=== PATIENT | female | born 1960 | race Caucasian/White ===

== ENCOUNTER → 2023-12-25 10:06 | Outpatient (REF) | payer OTHER, SELFPAY | LOC: RAD 10:06 | PROVIDERS: ATTENDING PHYSICIAN Physician Assistant | DX: Z13.820 Encounter for screening for osteoporosis (principal); M54.2 Cervicalgia | CPT/HCPCS: 72050; 77080 ==

== ENCOUNTER → 2024-01-07 07:54 | Outpatient (REF) | payer OTHER, SELFPAY | LOC: RCS 07:54 | PROVIDERS: ATTENDING PHYSICIAN Physician Assistant | DX: R07.9 Chest pain, unspecified (principal); R53.83 Other fatigue | CPT/HCPCS: 93017 ==

== ENCOUNTER → 2024-01-14 11:34 | Outpatient (REF) | payer OTHER, SELFPAY | LOC: RAD 11:34 | PROVIDERS: ATTENDING PHYSICIAN Physical Medicine & Rehabilitation; FAMILY PHYSICIAN Physician Assistant | DX: M54.6 Pain in thoracic spine (principal) | CPT/HCPCS: 72072 ==

== ENCOUNTER 2024-01-25 11:52 | Outpatient (RCR) | payer OTHER, SELFPAY | END 2024-01-25 23:59 | disposition home or self-care (01) | LOC: RPT 11:52 | PROVIDERS: ATTENDING PHYSICIAN Physical Medicine & Rehabilitation; FAMILY PHYSICIAN Physician Assistant | DX: M50.30 Other cervical disc degeneration, unspecified cervical region (principal); M47.812 Spondylosis without myelopathy or radiculopathy, cervical region; Z73.6 Limitation of activities due to disability | CPT/HCPCS: 97112; 97162 ==

== ENCOUNTER → 2024-02-09 13:12 | Outpatient (REF) | payer OTHER, SELFPAY | LOC: PAVMRI 13:12 | PROVIDERS: ATTENDING PHYSICIAN Physical Medicine & Rehabilitation; FAMILY PHYSICIAN Physician Assistant; REFERRING PHYSICIAN Internal Medicine Rheumatology | DX: M54.12 Radiculopathy, cervical region (principal) | CPT/HCPCS: 72141 ==

== ENCOUNTER → 2024-04-26 11:41 | Outpatient (REF) | payer OTHER, SELFPAY | LOC: RAD 11:41 | PROVIDERS: ATTENDING PHYSICIAN Internal Medicine Rheumatology; FAMILY PHYSICIAN Physician Assistant | DX: M79.641 Pain in right hand (principal); M79.671 Pain in right foot; M15.9 Polyosteoarthritis, unspecified; M81.0 Age-related osteoporosis without current pathological fracture | CPT/HCPCS: 73110; 73130; 73630 ==

== ENCOUNTER → 2024-06-06 06:23 | Day surgery (SDC) | payer OTHER, SELFPAY | LOC: GI 06:23 | PROVIDERS: ATTENDING PHYSICIAN Internal Medicine; FAMILY PHYSICIAN Physician Assistant | DX: R19.7 Diarrhea, unspecified (principal); R10.13 Epigastric pain; K29.50 Unspecified chronic gastritis without bleeding | CPT/HCPCS: 43239; 88305; 88342 ==

== ENCOUNTER → 2024-08-16 08:05 | Outpatient (REF) | payer OTHER, SELFPAY | LOC: DHCBC/DCA 08:05 | PROVIDERS: ATTENDING PHYSICIAN Internal Medicine Cardiovascular Disease; FAMILY PHYSICIAN Physician Assistant | DX: R07.89 Other chest pain (principal) | CPT/HCPCS: 78452; 93017; A9500 ==

== ENCOUNTER → 2024-09-01 15:41 | Outpatient (REF) | payer OTHER, SELFPAY | LOC: WDC 15:41 | PROVIDERS: ATTENDING PHYSICIAN Obstetrics & Gynecology Gynecology; FAMILY PHYSICIAN Physician Assistant | DX: Z12.31 Encounter for screening mammogram for malignant neoplasm of breast (principal) | CPT/HCPCS: 77063; 77067 ==

== ENCOUNTER → 2024-10-27 08:34 | Outpatient (REF) | payer OTHER, SELFPAY | LOC: RAD 08:34 | PROVIDERS: ATTENDING PHYSICIAN Obstetrics & Gynecology Gynecology; FAMILY PHYSICIAN Physician Assistant | DX: N95.0 Postmenopausal bleeding (principal) | CPT/HCPCS: 76830; 76856 ==

== ENCOUNTER → 2025-05-22 13:07 | Outpatient (REF) | payer MEDICARE, SELFPAY | LOC: HWRAD 13:07 | PROVIDERS: ATTENDING PHYSICIAN Obstetrics & Gynecology Gynecology; FAMILY PHYSICIAN Physician Assistant; OTHER PHYSICIAN Internal Medicine; REFERRING PHYSICIAN Internal Medicine Rheumatology | DX: N83.209 Unspecified ovarian cyst, unspecified side (principal) | CPT/HCPCS: 76830; 76856 ==

== ENCOUNTER 2025-05-22 16:53 | Emergency (ER) | payer MEDICARE, SELFPAY ==
[2025-05-22 16:56] VITALS: BP 115/57
[2025-05-22 17:17] LABS: Hematocrit 34.2 % (37.0-47.0); Hemoglobin 11.5 g/dL (12.0-16.0); Mean Corp Hgb Conc. 33.6 g/dL (33.0-37.0); Mean Corpuscular Volume 89.5 fL (81.0-99.0); Nucleated Red Blood Cells % 0 %; Platelet Count 231 10^3/uL (130-400); Red Cell Dist. Width 13.6 % (11.5-14.5)
[2025-05-22 17:37] LABS: ALT (SGPT) 17 U/L (0-35); AST (SGOT) 20 U/L (14-36); Albumin 4.2 g/dl (3.5-5.0); Alkaline Phosphatase 56 U/L (38-126); Blood Urea Nitrogen 19 mg/dl (7-17); Calcium 9.0 mg/dl (8.4-10.2); Carbon Dioxide 29 mmol/L (22-30); Chloride 108 mmol/L (98-107); Glucose 97 mg/dl (70-99); Potassium 4.0 mmol/L (3.5-5.1); Sodium 140 mmol/L (135-145); Total Protein 7.1 g/dl (6.3-8.2); Uric Acid 3.5 mg/dl (2.5-6.2); eGFR > 60.00
--- NOTE | 2025-05-22 20:18 | ED.GENMED ---
History of Present Illness
General
Chief Complaint: Swelling
Source: patient
Exam Limitations: none
Time Seen by Provider: 05/22/25 19:56
Nursing documentation reviewed up to this point in time: agreed with
History of Present Illness
History of Present Illness:
Patient is a very pleasant 65-year-old female history of osteoarthritis on turmeric presents with swelling of her left knee and left Who was admitted to hospital in [facility] with pneumonia treated with 2 antibiotics had some pain in her
wrist, which improved, then developed some rectal bleeding with a negative C. difficile, and then the past few days had some left knee pain and left calf pain PCP sent in to rule out DVT, does have a prescription for meloxicam which she has not
started yet she did want to start steroids as concern for osteoporosis no chest pain or shortness of breath no fever she is recovered from the pneumonia she was doing some aerobic exercises on the beach recently
Past History
Past History
ED Past Medical History: Other (Osteoarthritis)
ED Past Surgical History:
Social History
Tobacco: Non-smoker
Alcohol: None
Drug: None
Personal:
Living: with family
Employment: Employed
Review of Systems
Review of Systems
All Other Systems: Not applicable
Constitutional: Denies fever or fatigue
EENT: Reports no symptoms
Respiratory: Denies trouble breathing
Cardiac: Denies chest pain
Musculoskeletal: Reports joint pain and muscle stiffness
Phy Exam
Physical Exam
Physical Exam:
Physical Exam
General: no apparent distress, not acutely ill
Neck: No jaundice
Heart: s1/s2 regular rate and rhythm, no murmur. equal radial pulses.
Lungs: no acute respiratory distress. clear bilaterally
Neuro: alert and oriented. no focal neurological deficits
Skin: no rash
Psychiatric: well kept. interactive and cooperative
Extremities: Mild swelling of the left glute and left calf no cellulitic changes no cords
Scores
Heart Failure Risk
Heart Failure Risk Score: Not Applicable
Course
Orders/Labs/Results
Orders:
Orders
05/22/25 17:00
US Legs, Left [US Periph Venous LOWER Ext LT] Urgent
Comment:
Reason For Exam: swelling
05/22/25 17:06
C-Reactive Protein Urgent
Complete Blood Count/With Diff Urgent
Comprehensive Metabolic Panel Urgent
Erythrocyte Sed Rate Urgent
Uric Acid Urgent
05/22/25 20:18
Jovan Wrap Left-Treatment ONCE
Abnormal Lab Results
05/22/25
17:06
RBC 3.82 L 10^6/uL
(4.20-5.40)
Hgb 11.5 L g/dL
(12.0-16.0)
Hct 34.2 L %
(37.0-47.0)
ESR 28 H mm/hour
(0-20)
Chloride 108 H mmol/L
(98-107)
BUN 19 H mg/dl
(7-17)
05/22/25 17:06
05/22/25 17:06
Vital Signs
Initial and Last Documented VS:
Initial Vital Signs
Temp Pulse Resp BP Pulse Ox
98.0 F 74 20 115/57 97
05/22/25 16:56 05/22/25 16:56 05/22/25 16:56 05/22/25 16:56 05/22/25 16:56
Last Documented Vital Signs
Temp Pulse Resp BP Pulse Ox
98.0 F 74 20 115/57 97
05/22/25 16:56 05/22/25 16:56 05/22/25 16:56 05/22/25 16:56 05/22/25 16:56
MDM/Problems Addressed
Differential Diagnosis Includes:
DVT strain overuse no signs of cellulitis or arterial insufficiency
MDM/Problems Addressed:
Left knee pain left calf swelling
Chronic conditions affecting care:
OA
Acute Exacerbation and/or Progression of Chronic Illness:
OA
*Radiology
Radiology exam reviewed: radiology read reviewed
*Pulse Oximetry
SaO2: 97
Oxygen Mode of Delivery: Room air
Patient hypoxic: no
*Critical Care Note
Total Time (30-74mins, 75-104mins- exclusive of procedures): Not Applicable
Update Note
Update Note:
Update, labs noted ultrasound noted will place an Jovan wrap, have her take her meloxicam on a full stomach
ED Attending Note
-
Portions of this chart may have been created with voice recognition software.� Occasional wrong word or��sound alike� substitutions may have occurred due to the inherent limitations of voice recognition software.
Discharge Plan
Departure
Patient Disposition: Home (Routine Discharge)
Date of Disposition: 05/22/25
Time of Disposition: 20:21
Patient with high blood pressure during this ER visit?: No
Condition: Good
Discharge Problem:
Knee swelling, Swelling of calf
Instructions: Leg Muscle Strain ED, Lower Extremity Muscle Strain
Activity Restrictions/Additional Instructions:
Ice, rest use Jovan wrap for comfort
Take meloxicam as prescribed on a full stomach follow-up with your primary care provider
Interventions
Interventions:
*General Assessment Last Done: 05/22/25 16:56
Discharge Date and Time
Print Language: FRISIAN
[2025-05-22 23:14] LABS: C-Reactive Protein < 5.00 mg/L (0.0-10.00)
== END 2025-05-22 20:51 | disposition home or self-care (01) ==
LOC: EMR 16:53
PROVIDERS: Emergency Medicine; EMERGENCY PHYSICIAN Emergency Medicine; FAMILY PHYSICIAN Physician Assistant
DX: R22.42 Localized swelling, mass and lump, left lower limb (principal)
CPT/HCPCS: 99284; 80053; 84550; 85025; 85652; 86140; 93971

== ENCOUNTER 2025-07-03 06:27 | Day surgery (SDC) | payer MEDICARE, OTHER, SELFPAY | END 2025-07-03 09:12 | disposition home or self-care (01) | LOC: GI 06:27 | PROVIDERS: ATTENDING PHYSICIAN Internal Medicine | DX: K92.1 Melena (principal); R19.4 Change in bowel habit; K64.9 Unspecified hemorrhoids; K57.30 Diverticulosis of large intestine without perforation or abscess without bleeding | CPT/HCPCS: 45380; 88305 ==

== ENCOUNTER → 2025-07-05 16:37 | Outpatient (REF) | payer MEDICARE, SELFPAY | LOC: RAD 16:37 | PROVIDERS: ATTENDING PHYSICIAN Internal Medicine Rheumatology; FAMILY PHYSICIAN Physician Assistant | DX: M15.9 Polyosteoarthritis, unspecified (principal) | CPT/HCPCS: 73560; 73565 ==

== ENCOUNTER → 2025-09-04 16:28 | Outpatient (REF) | payer MEDICARE, OTHER, SELFPAY | LOC: WDC 16:28 | PROVIDERS: ATTENDING PHYSICIAN Physician Assistant | DX: Z12.31 Encounter for screening mammogram for malignant neoplasm of breast (principal) | CPT/HCPCS: 77063; 77067 ==

== ENCOUNTER 2025-09-06 08:05 | Outpatient (RCR) | payer MEDICARE, OTHER, SELFPAY | END 2025-09-06 23:59 | disposition home or self-care (01) | LOC: RPT 08:05 | PROVIDERS: ATTENDING PHYSICIAN Internal Medicine Rheumatology; FAMILY PHYSICIAN Physician Assistant | DX: M25.561 Pain in right knee (principal); Z73.6 Limitation of activities due to disability; M62.81 Muscle weakness (generalized) | CPT/HCPCS: 97110; 97112; 97161 ==

== ENCOUNTER 2025-09-27 07:13 | Outpatient (RCR) | payer MEDICARE, OTHER, SELFPAY | END 2025-10-04 23:59 | disposition home or self-care (01) | LOC: RPT 07:13 | PROVIDERS: ATTENDING PHYSICIAN Internal Medicine Rheumatology; FAMILY PHYSICIAN Physician Assistant | DX: M25.561 Pain in right knee (principal); Z73.6 Limitation of activities due to disability; M62.81 Muscle weakness (generalized); M79.672 Pain in left foot | CPT/HCPCS: 97010; 97110; 97112 ==

== ENCOUNTER → 2025-09-28 18:07 | Outpatient (REF) | payer MEDICARE, OTHER, SELFPAY | LOC: RAD 18:07 | PROVIDERS: ATTENDING PHYSICIAN Internal Medicine Rheumatology; FAMILY PHYSICIAN Physician Assistant | DX: M79.671 Pain in right foot (principal) | CPT/HCPCS: 73630 ==